=== PATIENT | female | born 1950 | race Caucasian/White ===

== ENCOUNTER 2017-10-11 05:38 | Inpatient (IN) ==
[2017-10-11] MEDS ORDERED: ASPIRIN 325 MG TABLET PO ONE (09:16)
[2017-10-11] MEDS ORDERED: MAGNESIUM SULF RIDER 2 GM in PREMIX 1 EACH IV PRN (09:16)
[2017-10-11] MEDS ORDERED: POTASSIUM CHLORIDE RIDER 10 MEQ in PREMIX 1 EACH IV PRN (09:16)
[2017-10-11] MEDS ORDERED: DIAZEPAM 5 MG TABLET PO ONE (09:16)
[2017-10-11] MEDS ORDERED: diphenhydrAMINE CAP 25 MG CAPSULE PO ONE (09:16)
[2017-10-11] MEDS ORDERED: DIAZEPAM 5 MG TABLET ONE (09:26)
[2017-10-11] MEDS ORDERED: diphenhydrAMINE CAP 25 MG CAPSULE ONE (09:26)
[2017-10-11] MEDS: DEXTROSE 5% NACL 0.45% 1,000 ML IV SCH ×2 (09:48→19:00)
[2017-10-11] MEDS ORDERED: LIDOCAINE 1%/EPI INJ 20 ML VIAL ONE (10:04)
[2017-10-11] MEDS ORDERED: HEPARIN/NACL 0.9% 2 UNITS/ML 1,000 ML IV ONE (10:04)
[2017-10-11] MEDS ORDERED: fentaNYL 100 MCG/2 ML VIAL ONE (10:18)
[2017-10-11] MEDS ORDERED: MIDAZOLAM 2 MG/2 ML VIAL ONE (10:27)
[2017-10-11] MEDS ORDERED: NITROGLYCERIN SL 0.4 MG TABLET SL PRN (11:17)
[2017-10-11] MEDS: NICOTINE 21 MG/24 HR PATCH TRANSDERM SCH (14:44)
[2017-10-11] MEDS: ALPRAZolam 0.5 MG TABLET PO PRN ×2 (14:45→20:58)
[2017-10-11] MEDS ORDERED: METOPROLOL TARTRATE 25 MG TABLET PO SCH (21:00)
[2017-10-11] MEDS ORDERED: ROSUVASTATIN 20 MG TABLET PO SCH (21:00)
[2017-10-11] MEDS ORDERED: LEVOTHYROXINE 25 MCG TABLET PO SCH (21:00)
[2017-10-11] MEDS ORDERED: ASPIRIN EC 81 MG TABLET PO SCH (21:00)
[2017-10-11] MEDS ORDERED: POTASSIUM GLUCONATE 500 MG TABLET PO SCH (21:00)
[2017-10-11] MEDS: ALBUTEROL 0.63 MG/3 ML NEB RESP TX SCH (23:32)
[2017-10-12] MEDS: DEXTROSE 5% NACL 0.45% 1,000 ML IV SCH (03:40)
[2017-10-12] MEDS: ALBUTEROL 0.63 MG/3 ML NEB RESP TX SCH (07:09)
[2017-10-12 08:07] VITALS: BP 123/56
[2017-10-12] MEDS: NICOTINE 21 MG/24 HR PATCH TRANSDERM SCH (08:19)
[2017-10-12] MEDS ORDERED: FUROSEMIDE 20 MG TABLET PO SCH (09:00)
[2017-10-13] MEDS ORDERED: ERGOCALCIFEROL 50,000 UNIT CAPSULE PO SCH (09:00)
== END 2017-10-12 10:56 | disposition home or self-care (01) | DRG 287 ==
LOC: N.CL 05:38 → N.TELEN 15:16
PROVIDERS: ADMIT Internal Medicine Interventional Cardiology; ATTEND Internal Medicine Interventional Cardiology

== ENCOUNTER 2020-11-19 21:52 | Observation (INO) ==
[2020-11-19] MEDS ORDERED: methylPREDNISolone SOD SUC 125 MG/2 ML VIAL IV STA (22:19)
[2020-11-19] MEDS ORDERED: ALBUTEROL/IPRATROPIUM 3 ML NEB RESP TX STA (22:19)
[2020-11-19 22:20] LABS: Basophils % 0.1 % (0.0-0.8); Eosinophils % 0.2 % (0.00-10.9); Hematocrit 44.8 VOL% (35.7-47.0); Hemoglobin 14.8 GM/DL (12.0-16.0); Immature Granulocytes % 0.7 %; Immature Granulocytes Absolute 0.11 #; Lymphocytes # 2.5 10*3/uL (1.4-4.0); Lymphocytes % 16.4 % (21.3-54.2); Mean Corpuscular Volume 93.9 FL (87-102); Mean Platelet Volume 9.9 FL (9.6-12.0); Neutrophils % 76.6 % (38.7-73.9); Platelet Count 325 T/CUMM (130-400); Red Blood Count 4.77 MC/CUMM (3.8-5.5); Red Cell Distribution Width 13.7 % (9.3-17.3); White Blood Count 15.5 T/CUMM (4-12)
[2020-11-19 22:32] LABS: PT Patient Result 10.8 SECS (10.5-12.0); Partial Thromboplastin Time 25.4 SECS (23.9-33.8)
[2020-11-19 22:41] LABS: Alanine Aminotransferase 23 U/L (13-56); Albumin 4.2 G/DL (3.4-5.0); Alkaline Phosphatase 120 U/L (45-117); Aspartate Amino Transferase 14 U/L (0-37); Bilirubin,Total < 0.39 MG/DL (0.2-1.0); Blood Urea Nitrogen 16 MG/DL (7-18); Calcium 10.2 MG/DL (8.5-10.1); Carbon Dioxide 31 MMOL/L (21-32); Estimated Glom Filtration Rate 90 ML/MIN; Glucose 119 MG/DL (74-106); Osmolality,Calculated 278.5 MOS/KG (273-304); Sodium 139 MMOL/L (136-145); Total Protein 7.7 G/DL (6.4-8.2)
[2020-11-19] MEDS ORDERED: LEVALBUTEROL 1.25 MG/3 ML NEB RESP TX STA (23:34)
[2020-11-19] MEDS ORDERED: LEVOFLOXACIN INJ 500 MG/100 ML PREMIX IV SCH (23:45)
[2020-11-20] MEDS ORDERED: guaiFENesin/DM ER 600-30 MG TABLET PO PRN (00:07)
[2020-11-20] MEDS ORDERED: DOCUSATE SODIUM 100 MG CAPSULE PO PRN (00:07)
[2020-11-20] MEDS ORDERED: diphenhydrAMINE CAP 25 MG CAPSULE PO PRN (00:07)
[2020-11-20] MEDS ORDERED: ACETAMINOPHEN 325 MG TABLET PO PRN (00:07)
[2020-11-20] MEDS ORDERED: ZALEPLON 5 MG CAPSULE PO PRN (00:07)
[2020-11-20] MEDS ORDERED: GLUCAGON 1 MG VIAL IM PRN (00:07)
[2020-11-20] MEDS ORDERED: hydrALAZINE 20 MG/1 ML VIAL IV PRN (00:07)
[2020-11-20] MEDS ORDERED: DEXTROSE 50% 25 GM/50 ML VIAL IV PRN (00:07)
[2020-11-20] MEDS ORDERED: ONDANSETRON 4 MG/2 ML VIAL IV PRN (00:07)
[2020-11-20] MEDS ORDERED: NICOTINE 21 MG/24 HR PATCH TRANSDERM PRN (00:07)
[2020-11-20] MEDS ORDERED: KETOROLAC 30 MG/1 ML VIAL IV PRN (00:10)
[2020-11-20 00:25] LABS: ABG Base Excess 2.2 MMOL/L (-2.5-2.5); ABG HCO3 27.2 MMOL/L (20-26); ABG Oxygen Saturation 94.6 % (95-100); ABG PCO2 43.7 MM HG (35-48); ABG PH 7.412 (7.35-7.45); ABG TCO2 28.5 MMOL/L (23-27)
[2020-11-20] MEDS: ALBUTEROL/IPRATROPIUM 3 ML NEB RESP TX SCH ×3 (03:40→15:00)
[2020-11-20] MEDS: methylPREDNISolone SOD SUC 40 MG/1 ML VIAL IV SCH ×2 (05:52→14:11)
[2020-11-20 06:08] LABS: Basophils % 0.1 % (0.0-0.8); Hematocrit 41.5 VOL% (35.7-47.0); Hemoglobin 13.7 GM/DL (12.0-16.0); Immature Granulocytes % 0.6 %; Immature Granulocytes Absolute 0.05 #; Lymphocytes # 1.3 10*3/uL (1.4-4.0); Lymphocytes % 14.8 % (21.3-54.2); Mean Corpuscular Volume 93.5 FL (87-102); Mean Platelet Volume 10.1 FL (9.6-12.0); Monocytes % 1.1 % (1.7-12.7); Neutrophils % 83.4 % (38.7-73.9); Platelet Count 271 T/CUMM (130-400); Red Blood Count 4.44 MC/CUMM (3.8-5.5); Red Cell Distribution Width 13.4 % (9.3-17.3); White Blood Count 8.7 T/CUMM (4-12)
[2020-11-20 06:25] LABS: Calcium 9.9 MG/DL (8.5-10.1); Osmolality,Calculated 281.4 MOS/KG (273-304); Potassium 4.8 MMOL/L (3.5-5.1)
[2020-11-20] MEDS ORDERED: PANTOPRAZOLE 40 MG TABLET PO SCH (09:00)
[2020-11-20] MEDS ORDERED: LEVOTHYROXINE 75 MCG TABLET PO SCH (09:00)
[2020-11-20] MEDS ORDERED: CLOPIDOGREL 75 MG TABLET PO SCH (09:00)
[2020-11-20] MEDS ORDERED: ROSUVASTATIN 10 MG TABLET PO SCH (09:00)
[2020-11-20] MEDS: ENOXAPARIN 40 MG/0.4 ML SYRINGE SUBCUT SCH ×2 (09:37→09:40)
[2020-11-20 15:54] VITALS: BP 166/78
[2020-11-20] MEDS ORDERED: METOPROLOL TARTRATE 25 MG TABLET PO SCH (21:00)
[2020-11-20] MEDS ORDERED: METOPROLOL SUCCINATE XL 25 MG TABLET PO SCH (21:00)
[2020-11-20] MEDS ORDERED: LEVOFLOXACIN INJ 750 MG/150 ML PREMIX IV SCH (21:00)
[2020-11-20] MEDS ORDERED: PRAVASTATIN 20 MG TABLET PO SCH (21:00)
== END 2020-11-20 17:23 | disposition home or self-care (01) ==
LOC: N.EDINP 21:52 → N.ED 21:52 → N.EDINP 11-20 01:59 → N.TELES 11-20 02:25
PROVIDERS: ADMIT Internal Medicine Geriatric Medicine; ATTEND Internal Medicine Geriatric Medicine